=== PATIENT | male | born 1990 | race Caucasian/White ===

== ENCOUNTER 2022-03-21 17:09 | Emergency (ER) | payer SELFPAY ==
[2022-03-21 17:15] VITALS: BP 135/70; PULSE 71; RESP 19; TEMP 36.9; O2SAT 98; BMI 33.2
--- NOTE | 2022-03-21 17:22 | XR_ITS ---
PROCEDURE INFORMATION: Exam: XR Right Hand Exam date and time: 03/21/22 05:26 PM Age: 31 years old Clinical indication: Injury or trauma; Other: Punched door; Sprain or strain; Hand; Right; Injury date: 03/21/2022; Injury details: PT states that he punched a door at 2 am this morning TECHNIQUE: Imaging protocol: Radiologic exam of the Right hand. Views: 3 or more views. COMPARISON: CR XR WRIST RT MIN 3V 03/21/22 05:22 PM FINDINGS: Bones/joints: Normal. Soft tissues: Normal. IMPRESSION: No acute findings.
--- NOTE | 2022-03-21 17:22 | XR_ITS ---
PROCEDURE INFORMATION: Exam: XR Right Wrist Exam date and time: 03/21/22 05:22 PM Age: 31 years old Clinical indication: Injury or trauma; Other: Punched a wall; Sprain or strain; Wrist; Right; Injury date: 03/21/2022; Injury details: PT states that he punched a door at 2 am this morning; Additional info: Punched door TECHNIQUE: Imaging protocol: Radiologic exam of the Right wrist. Views: 3 or more views. COMPARISON: No relevant prior studies available. FINDINGS: Bones/joints: Normal. Soft tissues: Normal. IMPRESSION: No acute findings.
--- NOTE | 2022-03-21 17:24 | XR_ITS ---
PROCEDURE INFORMATION: Exam: XR Right Forearm Exam date and time: 03/21/22 05:31 PM Age: 31 years old Clinical indication: Injury or trauma; Other: Punched a wall; Sprain or strain; Arm, lower; Right; Injury date: 03/21/2022; Injury details: PT states that he punched a door at 2 am this morning; Additional info: Punched door TECHNIQUE: Imaging protocol: Radiologic exam of the Right forearm. Views: 2 views. COMPARISON: CR XR HAND RT MIN 3V 03/21/22 05:26 PM FINDINGS: Bones/joints: Normal. Soft tissues: Normal. IMPRESSION: No acute findings.
--- NOTE | 2022-03-21 17:31 | HMH.EDUTC ---
[facility] Disposition Clinical Impression: Hand injury Qualifiers: Encounter type: initial encounter Laterality: right Qualified Code(s): S69.91XA - Unspecified injury of right wrist, hand and finger(s), initial encounter Disposition: Home, Self-Care Condition on Discharge: Good Instructions: DI for Contusion, Contusion, DI for Abrasion Additional Instructions: Clean abrasions well with antibacterial soap and water and apply neosporin Ice to area 20 min every couple of hours may help with swelling and pain Over the counter Motrin and/or Tylenol as directed on package for pain Return if needed Straight to ER if any life threatening symptoms Prescriptions: Amoxicillin/Potassium Clav [Amox-Clav 875-125 mg Tablet] 1 tab PO BID #14 tab Transmission Status: Pending to [facility] Referrals: Provider,Referral, MD [Primary Care Provider] - As needed Time of Disposition: 18:02 Medical Decision Making - Pedro Inquiry Pt receiving controlled substance: No Pedro was queried for this patient: No Vital Signs: 03/21/22 17:15 Temperature 98.4 F Temperature Source Oral Pulse Rate [Right Brachial] 71 Respiratory Rate 19 Blood Pressure [Right Arm] 135/70 Blood Pressure Mean [Right Arm] 91 Blood Pressure Source [Right Arm] Automatic Cuff Blood Pressure Position [Right Arm] Sitting 02 Sat by Pulse Oximetry 98 Oxygen Delivery Method Room Air Orders (Tests/Meds): ORDERS Category Date Time Status XR forearm RT 2V Stat Exams 03/21/22 17:24 Taken XR hand RT min 3V Stat Exams 03/21/22 17:22 Taken - Radiology Data #1 Image(s): Forearm Image Reviewed: Yes I have reviewed radiologist's interpretation IMPRESSION: No acute findings. #2 Image(s): Wrist Image Reviewed: Yes I have reviewed radiologist's interpretation IMPRESSION: No acute findings. #3 Image(s): Hand Image Reviewed: Yes I have reviewed radiologist's interpretation IMPRESSION: No acute findings. [facility] HPI - General Stated complaint: AO 03/21@0200 hit R hand Time Seen by Provider: 03/21/22 17:31 Mode of Arrival: Ambulatory Source of Information: Patient Limitations: No Limitations Description of Symptoms (Recalled from Triage Doc. by RN): PATIENT C/O INJURY TO RIGHT HAND/WRIST AFTER PUNCHING A DOOR THIS MORNING HEENT Symptoms (Recalled from RN notes): No Resp Symptoms (Recalled from RN notes): No Skin Symptoms (Recalled from RN notes): No MS Symptoms (Recalled from RN notes): Yes Functional Status (Recalled from RN notes): WNL - History of Present Illness Provider Complaint: Patient states that last night he got mad and punched a door States that he scrapped his hand up pretty good and having pain and swelling in top of his hand, wrist and forearm States as the day went on he has continued to have pain and swelling so he came in to get it checked out - Related Data Previous Rx's Medication Instructions Recorded Amoxicillin/Potassium Clav 1 tab PO BID #14 tab 03/21/22 [Amox-Clav 875-125 mg Tablet] Allergies Allergy/AdvReac Type Severity Reaction Status Date / Time No Known Allergies Allergy Verified 03/21/22 17:31 - Worker's Comp Is this a Worker's Comp case?: No [facility] History - Hepatitis A Screen Attestation statement:: This patient has been screened for Hepatitis A risk factors. I have reviewed the patient's past medical history: Yes ROS Obtained: Yes All systems reviewed & no additional complaints, Yes Systems reviewed as appropriate & no additional complaints - ENT Ears, Nose, Mouth, and Throat: Reports system reviewed and no additional complaints, except as docu - Cardiovascular Cardiovascular: Reports system reviewed and no additional complaints, except as docu - Respiratory Respiratory: Reports system reviewed and no additional complaints, except as docu - Gastrointestinal Gastrointestingal: Reports: system reviewed and no additional complaints, except as docu -
[2022-03-21 18:05] VITALS: BP 135/70; PULSE 71; RESP 19; TEMP 36.9; O2SAT 98
== END 2022-03-21 18:10 | disposition home or self-care (01) ==
PROVIDERS: Emergency Provider Nurse Practitioner
DX: S69.91XA Unspecified injury of right wrist, hand and finger(s), initial encounter (principal); W22.09XA Striking against other stationary object, initial encounter
CPT/HCPCS: 73090; 73110; 73130; 99212; G0463